=== PATIENT | male | born 1975 | race Caucasian/White ===

== ENCOUNTER → 2021-12-05 | Outpatient (REF) | payer BC | LOC: M LAB REF 10:20 | PROVIDERS: ATTEND Internal Medicine Cardiovascular Disease | DX: I10 Essential (primary) hypertension (principal) ==

== ENCOUNTER → 2024-04-02 | Outpatient (REF) | payer BC | LOC: M LABSMT 08:35 | PROVIDERS: ATTEND Urology | DX: Z53.9 Procedure and treatment not carried out, unspecified reason (principal) ==